=== PATIENT | male | born 1955 | race African-American/Black ===

== ENCOUNTER 2017-06-18 08:46 | Emergency (ER) | payer OTHER ==
[~2017-06-18] VITALS: Ht 180.3 cm; Wt 107.0 kg
[2017-06-18] MEDS ORDERED: IBUPROFEN 800MG TABLET PO ONE (10:15)
[2017-06-18 10:18] VITALS: BP 171/96
== END 2017-06-18 11:09 | disposition home or self-care (01) ==
LOC: ER 09:00
DX: L03.116 Cellulitis of left lower limb (principal); I10 Essential (primary) hypertension; Z87.891 Personal history of nicotine dependence
CPT/HCPCS: 73630; 99284